=== PATIENT | male | born 2005 | race Caucasian/White ===

== ENCOUNTER → 2024-10-12 | Outpatient (CLI) | payer OTHER ==
--- NOTE | 2024-10-12 12:31 | FL ---
EXAMINATION TYPE: FL UGI w small bowel DATE OF EXAM: 10/12/2024 CLINICAL INDICATION: Male, 19 years old with history of K31.84 GASTROPARESIS R63.6 UNDERWEIGHT, exces sive bloating. TECHNIQUE: A single contrast small bowel follow through is performed utilizing barium and air. 1.57 minutes of fluoro time and 64 images obtained. Total dose area product (DAP) in uGy*m?, mGy*cm? (or similar): n/p COMPARISON: None FINDINGS: [employer] image of the abdomen shows moderate gas distended stomach. The esophagus shows adequate motility and emptying into the stomach. No evidence of fixed hiatal her jose or stricture noted. The stomach shows normal distensibility, peristalsis, and mucosal folds. No evidence of any mass or ulcer disease. Mild distal esophageal reflux was seen during real time performance of this study. The duodenal bulb and sweep are unremarkable. The small bowel study shows normal transit to the colon in less than 120 minutes. There is normal mu cosal fold pattern throughout the small bowel. There is no evidence of any stricture or filling defe ct noted. The terminal ileum is not successfully spotted due to low positioning of the cecum into th e mid to lower pelvis and overlying contrast filled distal small bowel loops. IMPRESSION: Mild distal gastroesophageal reflux. Moderately gas-distended stomach prior to beginning study of uncertain etiology and significance? Low-lying cecum is noted. [facility], , 10/12/2024 12:29 PM
== END | disposition home or self-care (01) ==
LOC: RADFLMAIN 09:34
PROVIDERS: ATTEND Family Medicine
DX: K31.84 Gastroparesis (principal); R63.6 Underweight; K21.9 Gastro-esophageal reflux disease without esophagitis; K63.89 Other specified diseases of intestine
CPT/HCPCS: 74240; 74248